=== PATIENT | male | born 1985 | race Caucasian/White ===

== ENCOUNTER 2017-03-20 19:17 | Emergency (ER) | payer SELFPAY ==
[~2017-03-20] VITALS: Ht 177.8 cm; Wt 104.3 kg
[~2017-03-20 19:17] MED LIST: CLIN150C17 PO; CLOT30CR TP; OXYC-197 PO
--- NOTE | 2017-03-20 19:39 | ED General ---
General Chief Complaint: Exposure Stated Complaint: DIESEL FUEL INHALATION Nursing Triage Note: Patient reports trying to prime fuel line and was sucking on hose and ingested some diesel fuel at 1700. patient reports that he coughed for about 5 minutes but is concerned the fuel went into lungs Nursing Sepsis Screen: No Definite Risk Source of Information: Patient Exam Limitations: No Limitations History of Present Illness Time Seen by Provider: 19:22 Initial Comments Here with report of asked no inhalation of diesel fuel. He is trying to siphon fuel for his vehicle when he got some in his mouth and actually breathing some. He had coughing for about 5 minutes. They did contact poison control who wanted him evaluated at the ER. He gradually came to the ER for evaluation. In no distress currently and feels much better. No breathing problems or coughing currently. Denies other injury or concerns. Timing/Duration: 1-3 Hours Severity: Mild Modifying Factors: improves with Rest Associated Systoms: No Chest Pain, Cough, No Fever/Chills, No Nausea/Vomiting, No Shortness of Air Allergies and Home Medications Allergies Coded Allergies: Iodinated Contrast Media - IV Dye (Verified Allergy, Unknown, 03/21/16) Home Medications Clindamycin HCl 150 Mg Capsule, 450 MG PO TID, #63 Prescribed by: PETAR MCDERMOTT on 05/07/161915 Clotrimazole 30 Gm Cream..g., 30 GM TP BID, #1 apply between toes BID x10 days Prescribed by: PETAR MCDERMOTT on 05/07/161915 Oxycodone HCl/Acetaminophen 1 Each Tablet, 1-2 EACH PO Q4H PRN for PAIN, #14 Prescribed by: RAMY OLMSTEAD on 03/21/16 0538 Constitutional: see HPI, No chills, No fever EENTM: no symptoms reported Respiratory: see HPI, cough, No short of breath, No wheezing Cardiovascular: no symptoms reported Gastrointestinal: no symptoms reported, No nausea, No vomiting Psychiatric/Neurological: No Symptoms Reported Past Eyqwxgp-Ajxzuh-Pnzldf Hx Patient Social History Alcohol Use: Occasionally Uses Recreational Drug Use: No Smoking Status: Current Everyday Smoker Recent Foreign Travel: No Contact w/Someone Who Travel: No Recent Infectious Disease Expo: No Recent Hopitalizations: No Surgeries HX Surgeries: Yes Surgeries: Abdominal Respiratory Hx Respiratory Disorders: No Cardiovascular Hx Cardiac Disorders: No Neurological Hx Neurological Disorders: No Reproductive System Hx Reproductive Disorders: No Genitourinary Hx Genitourinary Disorders: No Gastrointestinal Hx Gastrointestinal Disorders: Yes Gastrointestinal Disorders: Pancreatitis Musculoskeletal Hx Musculoskeletal Disorders: No Endocrine Hx Endocrine Disorders: No HEENT HX ENT Disorders: No Cancer Hx Cancer: No Psychosocial Hx Psychiatric Problems: No Integumentary HX Skin/Integumentary Disorder: No Blood Transfusions Hx Blood Disorders: No Reviewed Nursing Assessment Reviewed/Agree w Nursing PMH: Yes Family Medical History Significant Family History: No Pertinent Family Hx Physical Exam Vital Signs Vital Sign - Last 12Hours 03/20/17 19:26 Temp 97.0 Pulse 113 Resp 18 B/P (MAP) 164/119 Pulse Ox 97 Capillary Refill : Less Than 3 Seconds General Appearance: No Apparent Distress, WD/WN HEENT: PERRL/EOMI, Pharynx Normal Neck: Non Tender, Supple Respiratory: Lungs Clear, Normal Breath Sounds Cardiovascular: No Murmur, Tachycardia Neurologic/Psychiatric: Alert, Oriented x3 Skin: Normal Color, Warm/Dry Progress/Results/Core Measures Results/Orders My Orders Orders - SEMAJ JOHNSON MD Chest Pa/Lat (2 View) (03/20/17 19:28) Prednisone Tablet (Deltasone Tablet) (03/20/17 21:30) Rx-Albuterol Inhaler (Rx-Proair) (03/20/17 21:30) Vital Signs/I&O Vital Sign - Last 12Hours 03/20/17 19:26 Temp 97.0 Pulse 113 Resp 18 B/P (MAP) 164/119 Pulse Ox 97 Blood Pressure Mean: 134 Progress Note : Progress Note Seen and evaluated. Chest x-ray ordered. O2 sats in the upper 90s resting. Heart rate is slightly elevated and patient admits that he's been outside quite a bit please is likely a little bit dehydrated. He is drinking fluid without difficulty. Poison control contacted and recommended chest x-ray which is been ordered and monitoring for pneumonitis symptoms. 2114: Patient still without symptoms. He states he feels comfortable going home and will follow-up if he has any breathing problems symptoms. Patient does have elevated blood pressure that he will have evaluated through his doctor. He states that he does not like coming to the hospital and this may be part of the problem but has had some history of blood pressures that have been elevated occasionally. Chest x- ray shows question of area of pneumonitis/pneumonia in the right base. Patient has not had symptoms of pneumonia so I do believe this is likely a pneumonitis related symptom from the inhalation. We will give steroids for a few days and sent home with the an albuterol inhaler. Discharged home with return precautions. Patient verbalize understanding instructions and agreement with plan. Diagnostic Imaging Diagonstic Imaging: Xray Plain Films/CT/US/NM/MRI: chest Comments NAME: NANO [facility] REC#: [id number] PT STATUS: REG ER : 1985 PHYSICIAN: SEMAJ JOHNSON MD ADMIT DATE: 03/20/17/ER Signed Date of Exam: 03/20/17 CHEST PA/LAT (2 VIEW) INDICATION: Ingested diesel fuel with cough. PA and lateral views of the chest were obtained. FINDINGS: The heart size is normal. The mediastinum is unremarkable. There is minimal patchy infiltrate in the right lung base. There is no pleural effusion or pneumothorax. Mediastinum is unremarkable. IMPRESSION: Minimal patchy infiltrate in the right lung base may reflect early pneumonia or aspiration pneumonia. Recommend clinical correlation. No other acute cardiopulmonary abnormality Dictated by: Dictated on workstation # [id number] Dict: 03/20/171948 Trans: 03/20/172107 Interpreted by: FABRICIO FENTON Electronically signed by: FABRICIO FENTON 03/20/172107 Reviewed: Reviewed by Me Departure Impression Impression: Primary Impression: Aspiration pneumonitis Disposition: 01 HOME, SELF-CARE Condition: Improved Departure-Patient Inst. Decision time for Depature: 21:27 Referrals: NO,LOCAL PHYSICIAN (PCP/Family) Primary Care Physician Patient Instructions: Aspiration Pneumonia (DC) Add. Discharge Instructions: All discharge instructions reviewed with patient and/or family. Voiced understanding. Take medications as directed. Follow-up with your doctor this week for recheck and further evaluation. You should monitor your blood pressure daily and take that information to to establish if you need to have blood pressure medicines. Return for persistently elevated blood pressure, weakness, breathing problems, chest pain, vision problems, wheezing or other concerns as needed. Scripts Prednisone (Prednisone) 20 Mg Tab 40 MG PO DAILY, #6 TAB 0 Refills Prov: SEMAJ JOHNSON MD 03/20/17 SEMAJ JOHNSON MD March 20, 2017 19:39
--- NOTE | 2017-03-20 20:13 | Diagnostic Imaging Report ---
INDICATION: Ingested diesel fuel with cough. PA and lateral views of the chest were obtained. FINDINGS: The heart size is normal. The mediastinum is unremarkable. There is minimal patchy infiltrate in the right lung base. There is no pleural effusion or pneumothorax. Mediastinum is unremarkable. IMPRESSION: Minimal patchy infiltrate in the right lung base may reflect early pneumonia or aspiration pneumonia. Recommend clinical correlation. No other acute cardiopulmonary abnormality Dictated by: Dictated on workstation # [id number]
[2017-03-20] MEDS ORDERED: PRD20T PO (21:29)
[2017-03-20] MEDS ORDERED: RX-ALBUTEROL INHALER (PROAIR) 8 GM IH PRN (21:30)
[2017-03-20] MEDS ORDERED: predniSONE 20 MG TAB PO ONE (21:30)
[2017-03-20 21:35] VITALS: BP 160/122
== END 2017-03-20 21:35 | disposition home or self-care (01) ==
LOC: EDUNIT# 19:17 → ER 19:19
DX: J69.0 Pneumonitis due to inhalation of food and vomit (principal); T59.891A Toxic effect of other specified gases, fumes and vapors, accidental (unintentional), initial encounter; F17.210 Nicotine dependence, cigarettes, uncomplicated
CPT/HCPCS: 71020; 99283

== ENCOUNTER 2017-06-27 02:06 | Emergency (ER) | payer SELFPAY ==
[~2017-06-27] VITALS: Ht 177.8 cm; Wt 104.3 kg
[~2017-06-27 02:06] MED LIST changes: +PRD20T PO
[2017-06-27] MEDS ORDERED: NS IV 1000 ML 1,000 ML IV ONE (02:37)
[2017-06-27] MEDS ORDERED: fentaNYL INJECTION 100 MCG/2 ML AMP IVP ONE (02:45)
[2017-06-27] MEDS ORDERED: ONDANSETRON 4 MG/2 ML (SDV) Z0FRAN IVP ONE (02:45)
[2017-06-27 03:07] LABS: BASOPHILS # (AUTO) 0.1 10^3/uL (0.0-0.1); BASOPHILS % (AUTO) 1 % (0-10); EOSINOPHILS # (AUTO) 1.2 10^3/uL (0.0-0.3); EOSINOPHILS % (AUTO) 10 % (0-10); LYMPHOCYTES % (AUTO) 34 % (12-44); MEAN CORPUSCULAR HEMOGLOBIN 33 PG (25-34); MEAN CORPUSCULAR HGB CONC 36 G/DL (32-36); MEAN CORPUSCULAR VOLUME 90 FL (80-99); MONOCYTES # (AUTO) 0.9 X 10^3 (0.0-1.0); MONOCYTES % (AUTO) 7 % (0-12); NEUTROPHILS # (AUTO) 5.7 X 10^3 (1.8-7.8); NEUTROPHILS % (AUTO) 48 % (42-75); PLATELET COUNT 329 10^3/uL (130-400); RED BLOOD COUNT 4.83 10^6/uL (4.35-5.85); RED CELL DISTRIBUTION WIDTH 12.4 % (10.0-14.5); WHITE BLOOD COUNT 11.8 10^3/uL (4.3-11.0)
--- NOTE | 2017-06-27 03:18 | ED Headache ---
General Chief Complaint: Head/Cervical Problems Stated Complaint: HEAD PAIN Nursing Triage Note: c/o headache on R side. patient reports took 2 excedrin tablets and unisom without relief. Nursing Sepsis Screen: No Definite Risk Source: patient, family Exam Limitations: no limitations History of Present Illness Time seen by provider: 02:30 Initial Comments This 32-year-old young man presents to the emergency room with complaints of intense right-sided headache that has intensified over the past several hours. He had some balance difficulty when he first woke up at home, but he was able to walk into the ER without difficulty. He has some nasal congestion and postnasal drip which just started tonight. He does have a history of prior headaches but has never had a headache this intense. He drinks alcohol 2 or 3 days per week but did not have any alcohol last night. He smokes tobacco and marijuana. He denies any other illicit drug use. Pain is primarily behind the right eye but vision is unaffected. Allergies and Home Medications Allergies Coded Allergies: Iodinated Contrast Media - IV Dye (Verified Allergy, Unknown, 03/21/16) Home Medications Clindamycin HCl 150 Mg Capsule, 450 MG PO TID, #63 Prescribed by: PETAR MCDERMOTT on 05/07/161915 Clotrimazole 30 Gm Cream..g., 30 GM TP BID, #1 apply between toes BID x10 days Prescribed by: PETAR MCDERMOTT on 05/07/161915 Oxycodone HCl/Acetaminophen 1 Each Tablet, 1-2 EACH PO Q4H PRN for PAIN, #14 Prescribed by: RAMY OLMSTEAD on 03/21/16 0538 Prednisone 20 Mg Tab, 40 MG PO DAILY, #6 Ref 0 Prescribed by: SEMAJ JOHNSON on 03/20/172128 Constitutional: no symptoms reported Eyes: No Symptoms Reported Ears, Nose, Mouth, Throat: no symptoms reported Respiratory: no symptoms reported Cardiovascular: no symptoms reported Gastrointestinal: nausea (slight) Genitourinary: no symptoms reported Musculoskeletal: no symptoms reported Skin: no symptoms reported Psychiatric/Neurological: See HPI Past Rnxbmcx-Doykxs-Cuyvtp Hx Patient Social History Alcohol Use: Denies Use Recreational Drug Use: No Recent Foreign Travel: No Contact w/Someone Who Travel: No Recent Infectious Disease Expo: No Recent Hopitalizations: No Surgeries HX Surgeries: Yes Surgeries: Abdominal (trauma related) Respiratory Hx Respiratory Disorders: No Cardiovascular Hx Cardiac Disorders: No Neurological Hx Neurological Disorders: Yes Neurological Disorders: Headaches /Migraines Reproductive System Hx Reproductive Disorders: No Genitourinary Hx Genitourinary Disorders: No Gastrointestinal Hx Gastrointestinal Disorders: Yes Gastrointestinal Disorders: Pancreatitis Musculoskeletal Hx Musculoskeletal Disorders: No Endocrine Hx Endocrine Disorders: No HEENT HX ENT Disorders: No Cancer Hx Cancer: No Psychosocial Hx Psychiatric Problems: No Integumentary HX Skin/Integumentary Disorder: No Blood Transfusions Hx Blood Disorders: No Family Medical History Significant Family History: No Pertinent Family Hx Physical Exam Vital Signs Vital Sign - Last 12Hours 06/27/17 02:13 Temp 96.1 Pulse 95 Resp 28 B/P (MAP) 171/130 Pulse Ox 97 Capillary Refill : Less Than 3 Seconds General Appearance: WD/WN, moderate distress HEENT: PERRL/EOMI, normal ENT inspection, pharynx normal Neck: full range of motion, normal inspection Cardiovascular: regular rate, rhythm, no edema, no murmur Respiratory: lungs clear, normal breath sounds, no respiratory distress, no accessory muscle use Gastrointestinal: normal bowel sounds, non tender, soft Extremities: normal inspection, no pedal edema Psychiatric: alert, oriented x 3 Crainal Nerves: normal hearing, normal speech, PERRL Coordination/Gait: normal finger to nose Motor/Sensory: no motor deficit, no sensory deficit Skin: normal color, warm/dry Progress/Results/Core Measures Results/Orders Lab Results Laboratory Tests Test 06/27/17 02:55 Range/Units White Blood Count 11.8 H 4.3-11.0 10^3/uL Red Blood Count 4.83 4.35-5.85 10^6/uL Hemoglobin 15.8 13.3-17.7 G/DL Hematocrit 43 40-54 % Mean Corpuscular Volume 90 80-99 FL Mean Corpuscular Hemoglobin 33 25-34 PG Mean Corpuscular Hemoglobin Concent 36 32-36 G/DL Red Cell Distribution Width 12.4 10.0-14.5 % Platelet Count 329 130-400 10^3/uL Mean Platelet Volume 10.0 7.4-10.4 FL Neutrophils (%) (Auto) 48 42-75 % Lymphocytes (%) (Auto) 34 12-44 % Monocytes (%) (Auto) 7 0-12 % Eosinophils (%) (Auto) 10 0-10 % Basophils (%) (Auto) 1 0-10 % Neutrophils # (Auto) 5.7 1.8-7.8 X 10^3 Lymphocytes # (Auto) 4.0 1.0-4.0 X 10^3 Monocytes # (Auto) 0.9 0.0-1.0 X 10^3 Eosinophils # (Auto) 1.2 H 0.0-0.3 10^3/uL Basophils # (Auto) 0.1 0.0-0.1 10^3/uL Sodium Level 139 135-145 MMOL/L Potassium Level 3.9 3.6-5.0 MMOL/L Chloride Level 105 98-107 MMOL/L Carbon Dioxide Level 22 21-32 MMOL/L Anion Gap 12 5-14 MMOL/L Blood Urea Nitrogen 9 7-18 MG/DL Creatinine 0.88 0.60-1.30 MG/DL Estimat Glomerular Filtration Rate > 60 BUN/Creatinine Ratio 10 Glucose Level 164 H 70-105 MG/DL Calcium Level 8.9 8.5-10.1 MG/DL Total Bilirubin 0.3 0.1-1.0 MG/DL Aspartate Amino Transf (AST/SGOT) 63 H 5-34 U/L Alanine Aminotransferase (ALT/SGPT) 112 H 0-55 U/L Alkaline Phosphatase 108 40-136 U/L Total Protein 6.8 6.4-8.2 GM/DL Albumin 3.9 3.2-4.5 GM/DL Serum Alcohol 11 H <10 MG/DL My Orders Orders - RAMY PASTRANA MD Saline Lock/Iv-Start (06/27/17 02:37) Alcohol (06/27/17 02:37) Cbc With Automated Diff (06/27/17 02:37) Comprehensive Metabolic Panel (06/27/17 02:37) Drug Screen Stat (Urine) (06/27/17 02:37) Ns Iv 1000 Ml (Sodium Chloride 0.9%) (06/27/17 02:37) Fentanyl Injection (Sublimaze Injection (06/27/17 02:45) Ondansetron Injection (Zofran Injectio (06/27/17 02:45) Ct Head Wo (06/27/17 02:39) Ketorolac Injection (Toradol Injection) (06/27/17 04:45) Medications Given in ED Current Medications Medications Dose Ordered Sig/Hector Route Start Time Stop Time Status Last Admin Dose Admin Fentanyl Citrate 75 mcg ONCE ONCE IVP 06/27/17 02:45 06/27/17 02:46 DC 06/27/17 03:02 75 MCG Ketorolac Tromethamine 30 mg ONCE ONCE IVP 06/27/17 04:45 06/27/17 04:46 DC 06/27/17 05:00 30 MG Ondansetron HCl 4 mg ONCE ONCE IVP 06/27/17 02:45 06/27/17 02:46 DC 06/27/17 03:02 4 MG Sodium Chloride 1,000 ml @ 0 mls/hr Q0M ONCE IV 06/27/17 02:37 06/27/17 02:39 DC 06/27/17 03:02 0 MLS/HR Vital Signs/I&O Vital Sign - Last 12Hours 06/27/17 06/27/17 02:13 05:09 Temp 96.1 Pulse 95 87 Resp 28 18 B/P (MAP) 171/130 Pulse Ox 97 99 Blood Pressure Mean: 144 Progress Note #1: Time: 03:18 Progress Note Patient is being treated with fentanyl, Zofran, and IV fluids while awaiting CT scan. Progress Note #2: Progress Note Symptoms greatly improved with treatment. Patient was additionally given Toradol prior to dismissal. CT scan showed suggestion of lipomas and MRI was recommended for follow-up. The importance of this was communicated to the patient and his significant other. Patient was ultimately dismissed home in much improved condition. Diagnostic Imaging Diagonstic Imaging: CT Plain Films/CT/US/NM/MRI: head Comments CT head viewed by me and [facility] report reviewed. "No evidence of acute transcortical infarct or acute intracranial hemorrhage. 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 Suboptimally evaluated on this study. MRI of the brain is recommended for further evaluation." Departure Impression Impression: Primary Impression: Acute headache Qualified Codes: R51 - Headache Additional Impression: Intracranial mass Disposition: 01 HOME, SELF-CARE Condition: Improved Departure-Patient Inst. Decision time for Depature: 04:45 Referrals: NO,LOCAL PHYSICIAN (PCP/Family) Primary Care Physician Patient Instructions: Headache, Adult (DC), Lipoma Add. Discharge Instructions: You may take ibuprofen up to 800 mg every 8 hours as needed for pain. Add Tylenol (acetaminophen) up to 1000 mg every 6 hours as needed for additional pain relief. Drink plenty of clear liquids. Avoid use of mind altering substances such as alcohol and marijuana. There was suggestion of possible lipomas (benign tumors) on your CT scan. Further evaluation with MRI study is recommended. Please see a primary care provider as soon as possible to arrange for MRI. Return to the ER if symptoms worsen. All discharge instructions reviewed with patient and/or family. Voiced understanding. RAMY PASTRANA MD Jun 27, 2017 3:18 am
[2017-06-27 03:25] LABS: ALANINE AMINOTRANSFERASE 112 U/L (0-55); ALBUMIN 3.9 GM/DL (3.2-4.5); ALCOHOL 11 MG/DL (<10); ANION GAP 12 MMOL/L (5-14); ASPARTATE AMINO TRANSFERASE 63 U/L (5-34); BILIRUBIN,TOTAL 0.3 MG/DL (0.1-1.0); BLOOD UREA NITROGEN 9 MG/DL (7-18); BUN/CREATININE RATIO 10; CALCIUM 8.9 MG/DL (8.5-10.1); CARBON DIOXIDE 22 MMOL/L (21-32); CHLORIDE 105 MMOL/L (98-107); CREATININE SERUM 0.88 MG/DL (0.60-1.30); GFR ESTIMATED > 60; GLUCOSE 164 MG/DL (70-105); POTASSIUM 3.9 MMOL/L (3.6-5.0); SODIUM 139 MMOL/L (135-145); TOTAL PROTEIN 6.8 GM/DL (6.4-8.2)
[2017-06-27] MEDS ORDERED: KETOROLAC 30 MG/ML VIAL IVP ONE (04:45)
[2017-06-27 05:09] VITALS: BP 151/99
--- NOTE | 2017-06-27 06:11 | Diagnostic Imaging Report ---
PROCEDURE: CT head without contrast. TECHNIQUE: Multiple contiguous axial images were obtained through the brain without the use of intravenous contrast. INDICATION: Head pain. There is no hemorrhage, hydrocephalus, edema, mass or mass effect. There is no hydrocephalus. 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 There is intraventricular fat on the left. No focal or generalized edema. No evidence for elevated pressures. Orbits, paranasal sinuses, and calvarium unremarkable. IMPRESSION: No intracranial hemorrhage or hydrocephalus. Ventricular likely choroidal as well as pericallosal lipomas noted. No acute appearing space-occupying lesion or soft tissue density mass. Dictated by: Dictated on workstation # [id number]
== END 2017-06-27 05:09 | disposition home or self-care (01) ==
LOC: EDUNIT# 02:06 → ER 02:08
DX: G93.89 Other specified disorders of brain (principal); G43.909 Migraine, unspecified, not intractable, without status migrainosus; Z87.19 Personal history of other diseases of the digestive system; Z98.890 Other specified postprocedural states
CPT/HCPCS: 36415; 70450; 80053; 80320; 85025; 96361; 96374; 96375

== ENCOUNTER 2018-02-20 13:20 | Emergency (ER) | payer SELFPAY ==
[~2018-02-20] VITALS: Ht 177.8 cm; Wt 108.9 kg
[2018-02-20] MEDS ORDERED: TETRACAINE 0.5% OPHTH SOLN 4 ML BTL (SINGLE DOSE ONLY) ONE (13:24)
[2018-02-20] MEDS ORDERED: FLUORESCEIN (FLUOR-I-STRIPS) 1 MG STRP ONE (13:24)
[2018-02-20] MEDS ORDERED: BSS 15 ML ONE (13:24)
[2018-02-20] MEDS ORDERED: BSS 15 ML IR ONE (13:45)
[2018-02-20] MEDS ORDERED: FLUORESCEIN (FLUOR-I-STRIPS) 1 MG STRP OU ONE (13:45)
[2018-02-20] MEDS ORDERED: TETRACAINE 0.5% OPHTH SOLN 4 ML BTL (SINGLE DOSE ONLY) OP ONE (13:45)
[2018-02-20] MEDS ORDERED: HYDR-757 PO (13:49)
--- NOTE | 2018-02-20 13:49 | ED EENT ---
History of Present Illness General Chief Complaint: Eye Problems Stated Complaint: L EYE PAIN Source: patient Exam Limitations: no limitations History of Present Illness Date Seen by Provider: Feb 20, 2018 Time Seen by Provider: 13:44 Initial Comments Patient got a foreign body stuck in his eye while sharpening a chisel at home yesterday. He thought he might wake up this morning with a foreign body sensation gone however it persisted. No vision changes. Timing/Duration: abrupt Severity: mild Location: eye (L) Allergies and Home Medications Allergies Coded Allergies: Iodinated Contrast Media - IV Dye (Verified Allergy, Unknown, 03/21/16) Home Medications Hydrocodone/Acetaminophen 1 Each Tablet, 1 EACH PO Q4H PRN for PAIN-SEVERE TO BREAKTHROUGH Prescribed by: PETAR MCDERMOTT on 02/20/18 8616 Patient Home Medication List Home Medication List Reviewed: Yes Review of Systems Constitutional: see HPI Eyes: See HPI, Foreign Body Sensation, Pain Ears: No Symptoms Reported Nose: no symptoms reported Mouth: no symptoms reported Throat: no symptoms reported Respiratory: no symptoms reported Cardiovascular: no symptoms reported Musculoskeletal: no symptoms reported Past Bjherei-Zeorya-Rqfmyz Hx Patient Social History Recent Foreign Travel: No Contact w/Someone Who Travel: No Recent Hopitalizations: No Past Medical History Surgeries: Yes Abdominal Respiratory: No Cardiac: No Neurological: No Headaches /Migraines Reproductive Disorders: No Gastrointestinal: Yes Pancreatitis Musculoskeletal: No Endocrine: No Cancer: No Psychosocial: No Integumentary: No Blood Disorders: No Family Medical History No Pertinent Family Hx Physical Exam Vital Signs Vital Signs - First Documented 02/20/18 13:20 Temp 97.1 Pulse 118 Resp 18 B/P (MAP) 187/136 (153) Pulse Ox 99 General Appearance: WD/WN Eyes: right eye normal inspection; left eye other (Upon fluorescein staining there is no corneal abrasion noted pupil is normal. No evidence of globe injury. There is however a small black speck on the cornea at the 4:00 position just on the corneal side of the limbus); bilateral eye PERRL, bilateral eye EOMI Ears: bilateral ear auricle normal, bilateral ear canal normal, bilateral ear TM normal Mouth/Throat: normal mouth inspection, pharynx normal Neck: non-tender, full range of motion Cardiovascular: regular rate, rhythm, no murmur Neurologic/Psychiatric: alert, normal mood/affect, oriented x 3 Eye was anesthetized with topical tetracaine which did achieve complete pain resolution. The small black speck was easily removed with a blunt tipped needle. There was no rust ring. Difficult to tell whether this speck was metallic or some organic material. Either way no rust ring and it was removed without globe injury. We will discharge to home on gentamicin ophthalmic drops 2 drops every 4 hours Progress/Results/Core Measures My Orders Orders - PETAR MCDERMOTT APRN Gentamicin 0.3% Ophth Solution (Garamyci (02/20/18 16:00) Tetracaine 0.5% Ophth Lulu Sdv (Tetracai (02/20/18 13:45) Fluorescein Strips (Clkly-F-Saqoqf) (02/20/18 13:45) Balanced Salt Irrigation Soln (Bss Irrig (02/20/18 13:45) Fluorescein Strips ([id number]-Rvvfxa) (02/20/18 13:24) Tetracaine 0.5% Ophth Lulu Sdv (Tetracai (02/20/18 13:24) Balanced Salt Irrigation Soln (Bss Irrig (02/20/18 13:24) Medications Given in ED Current Medications Medications Dose Ordered Sig/Hector Route Start Time Stop Time Status Last Admin Dose Admin Balanced Salt Solution 15 ml ONCE ONCE IR 02/20/18 13:45 02/20/18 13:46 DC 02/20/18 13:49 15 ML Fluorescein Sodium 1 mg ONCE ONCE OU 02/20/18 13:45 02/20/18 13:46 DC 02/20/18 13:49 1 MG Tetracaine HCl 1 OR 2 DROPS INTO AFFEC... ONCE ONCE OP 02/20/18 13:45 02/20/18 13:46 DC 02/20/18 13:49 1 ML Vital Signs/I&O 02/20/18 13:20 Temp 97.1 Pulse 118 Resp 18 B/P (MAP) 187/136 (153) Pulse Ox 99 Departure Communication (Admissions) 1354-patient states that his blood pressure always runs similar to what it is today which is 187/130. Heart rate of 118. He states this is fairly normal for him. Does not have primary care provider I'll start him on a beta jagdeep. Impression Primary Impression: Corneal foreign body Additional Impression: Hypertension Disposition: 01 HOME, SELF-CARE Condition: Stable Departure-Patient Inst. Decision time for Depature: 13:47 Referrals: NO,LOCAL PHYSICIAN (PCP/Family) Primary Care Physician Patient Instructions: High Blood Pressure (DC), NO INSTRUCTIONS GIVEN Add. Discharge Instructions: 1. Apply topical antibiotic drops 2 drops every 4 hours for 3 days. Return to the emergency room for any worsening vision or vision changes, worsening pain, fevers or other concerns. He do not have an eye doctor, follow-up with Dr. Byrne on Thursday. All discharge instructions reviewed with patient and/or family. Voiced understanding. 2. You do need to establish care with a primary care physician to get your blood pressure under control Scripts Metoprolol Tartrate (Metoprolol Tartrate) 25 Mg Tablet 25 MG PO BID, #30 TAB Prov: PETAR MCDERMOTT APRN 02/20/18 Hydrocodone/Acetaminophen ([place] 5-325 Tablet) 1 Each Tablet 1 EACH PO Q4H PRN for PAIN-SEVERE TO BREAKTHROUGH, #10 TAB Prov: PETAR MCDERMOTT APRN 02/20/18 Images Eye 1 - Foriegn Body PETAR MCDERMOTT APRN Feb 20, 2018 13:49
[2018-02-20] MEDS ORDERED: METO-333 PO (13:56)
[2018-02-20 14:02] VITALS: BP 142/100
[2018-02-20] MEDS ORDERED: GENTAMICIN 0.3% OPHTH SOLN 5 ML OP SCH (16:00)
== END 2018-02-20 14:02 | disposition home or self-care (01) ==
LOC: EDUNIT# 13:20 → ER 13:22
DX: T15.02XA Foreign body in cornea, left eye, initial encounter (principal); I10 Essential (primary) hypertension; G43.909 Migraine, unspecified, not intractable, without status migrainosus; Z87.19 Personal history of other diseases of the digestive system; Z91.041 Radiographic dye allergy status; Y92.009 Unspecified place in unspecified non-institutional (private) residence as the place of occurrence of the external cause
CPT/HCPCS: 99283

== ENCOUNTER 2018-06-03 19:47 | Emergency (ER) | payer SELFPAY ==
[~2018-06-03] VITALS: Ht 177.8 cm; Wt 104.3 kg
[~2018-06-03 19:47] MED LIST changes: +HYDR-757 PO; +METO-333 PO
[2018-06-03] MEDS ORDERED: AMOX-358 PO (20:20)
[2018-06-03] MEDS ORDERED: MUPI1OIN6 TP (20:20)
[2018-06-03] MEDS ORDERED: NAPR-915 PO (20:20)
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
[2018-06-03 20:23] VITALS: BP 187/113
== END 2018-06-03 20:22 | disposition home or self-care (01) ==
LOC: EDUNIT# 19:47 → ER 19:48
DX: S01.511A Laceration without foreign body of lip, initial encounter (principal); L08.9 Local infection of the skin and subcutaneous tissue, unspecified; G43.909 Migraine, unspecified, not intractable, without status migrainosus; F12.10 Cannabis abuse, uncomplicated; F17.210 Nicotine dependence, cigarettes, uncomplicated; Z87.19 Personal history of other diseases of the digestive system; Z91.041 Radiographic dye allergy status; W22.09XA Striking against other stationary object, initial encounter
CPT/HCPCS: 87070; 87205; 99282

== ENCOUNTER 2019-06-01 05:22 | Emergency (ER) | payer OTHER ==
[~2019-06-01] VITALS: Ht 177.8 cm; Wt 102.1 kg
[~2019-06-01 05:22] MED LIST changes: +AMOX-358 PO; +HYDR-4226 PO; -HYDR-757 PO; +MUPI1OIN6 TP; +NAPR-915 PO; -OXYC-197 PO; +OXYC1TAB87 PO
[2019-06-01] MEDS ORDERED: FAMOTIDINE 20MG/2ML IV (PEPCID) IV STA (05:36)
[2019-06-01] MEDS ORDERED: diphenhydrAMINE 50 MG/ML INJ (BENADRYL) IV STA (05:36)
[2019-06-01] MEDS ORDERED: methylPREDNISolone 125 MG (Solu-MEDROL) VIAL IV STA (05:36)
[2019-06-01] MEDS ORDERED: NS IV 1000 ML 1,000 ML IV ONE (05:36)
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
[2019-06-01] MEDS ORDERED: EPINEPHrine INJECTION 1 MG/ML AMP IM ONE ×2 (05:45→06:30)
--- NOTE | 2019-06-01 06:23 | NUR ---
pt reports minimal improvement in hives/itching. denies needs at this time.
[2019-06-01] MEDS ORDERED: FAMOTIDINE 20MG/2ML IV (PEPCID) IVP ONE (06:30)
[2019-06-01] MEDS ORDERED: methylPREDNISolone 125 MG (Solu-MEDROL) VIAL IVP ONE (06:30)
[2019-06-01] MEDS ORDERED: diphenhydrAMINE 50 MG/ML INJ (BENADRYL) IVP ONE (06:30)
[2019-06-01] MEDS ORDERED: PRD20T PO (07:03)
[2019-06-01 07:10] VITALS: BP 162/118
== END 2019-06-01 07:10 | disposition home or self-care (01) ==
LOC: EDUNIT# 05:22 → ER 05:25
DX: T78.40XA Allergy, unspecified, initial encounter (principal); G43.909 Migraine, unspecified, not intractable, without status migrainosus; F12.10 Cannabis abuse, uncomplicated; F17.210 Nicotine dependence, cigarettes, uncomplicated; Z91.041 Radiographic dye allergy status
CPT/HCPCS: 93041; 96372; 96374; 96375; 96376

== ENCOUNTER → 2019-08-23 | Outpatient (CLI) | payer OTHER ==
--- NOTE | 2019-08-23 16:45 | Diagnostic Imaging Report ---
PROCEDURE: MR imaging of the brain without contrast. TECHNIQUE: Multiplanar, multisequence MR imaging of the brain was performed without contrast. INDICATION: Headaches. COMPARISON: No prior studies are available for comparison. FINDINGS: Ventricular size and sulcal pattern are stable. A fat-containing lesion in the pericallosal region appears similar to CT study from 06/27/2017. No acute intra-axial or extra-axial hemorrhage is seen. There is no midline shift. There is no diffusion restriction. The normal expected flow voids within the carotid siphons are seen. 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 No acute intracranial process is detected. Dictated by: Dictated on workstation # [id number]
== END ==
LOC: RAD 15:05
PROVIDERS: ATTEND Family Medicine
DX: D49.6 Neoplasm of unspecified behavior of brain (principal); R51 Headache
CPT/HCPCS: 70551